=== PATIENT | male | born 1935 | race Caucasian/White ===

== ENCOUNTER 2020-02-05 12:14 | Inpatient (IN) | payer MEDICARE ==
[~2020-02-05] VITALS: Ht 182.9 cm; Wt 69.2 kg
[2020-02-05] MEDS ORDERED: FILTER 0.22 MICRON ONE (13:00)
[2020-02-05] MEDS: AMIODARONE 450 MG in DEXTROSE 5% 241 ML IV SCH (13:30)
[2020-02-05] MEDS ORDERED: PLEASE ENTER HEIGHT AND WEIGHT MC SCH (13:30)
[2020-02-05] MEDS ORDERED: PLEASE ENTER ALLERGIES MC SCH (13:30)
[2020-02-05] MEDS ORDERED: ONDANSETRON 2MG/ML, 2ML IVPush PRN (14:00)
[2020-02-05] MEDS ORDERED: AMIODARONE 450 MG in DEXTROSE 5% 241 ML IV PRN (14:00)
[2020-02-05] MEDS ORDERED: ACETAMINOPHEN 325 MG TABLET PO PRN (14:00)
[2020-02-05] MEDS ORDERED: DILTIAZEM 5 MG/ML, 5ML IVPush PRN (14:00)
[2020-02-05 14:20] VITALS: BP 111/70
[2020-02-05] MEDS ORDERED: FILTER 0.22 MICRON IV PRN (14:30)
[2020-02-05 14:31] LABS: MEAN CORPUSCULAR HEMOGLOBIN 29.9 pg (27.5-34.5); MEAN CORPUSCULAR HGB CONC 32.3 g/dL (33.2-36.2); MEAN CORPUSCULAR VOLUME 92.6 fL (81-97); MEAN PLATELET VOLUME 8.6 fL (7.4-10.4); PLATELET COUNT 462 x10^3/uL (130-400); RED BLOOD COUNT 4.41 x10^6/uL (4.38-5.82); RED CELL DISTRIBUTION WIDTH 18.2 % (9.4-14.8)
[2020-02-05 14:35] LABS: INTERNATIONAL NORMALIZED RATIO 1.11 (0.93-1.1); PROTHROMBIN TIME 11.8 Seconds (9.6-11.5)
[2020-02-05 14:38] LABS: ANION GAP 8 mmol/L (5-15); CALCIUM 8.7 mg/dL (8.5-10.1); CHLORIDE 114 mmol/L (98-107); CREATININE 1.54 mg/dL (0.7-1.3)
[2020-02-05 14:43] LABS: FREE T4 (FREE THYROXINE) 1.17 ng/dL (0.76-1.46); TROPONIN I 0.083 ng/mL (0.000-0.045)
[2020-02-05 15:22] LABS: HCT (SEDRATE) 40.9 % (39.2-51.8)
[2020-02-05 15:37] LABS: MD YES
[2020-02-05 15:40] LABS: ANISOCYTOSIS 1+; BAND#(MANUAL) 0.11 x10^3/uL; BANDS%(MANUAL) 1 % (0-7); EOS#(MANUAL) 0.56 x10^3/uL (0.0-0.4); EOS% (MANUAL) 5 % (1-7); LYMPH#(MANUAL) 1.78 x10^3/uL (1-3.4); LYMPHS% (MANUAL) 16 % (22-44); MONOS#(MANUAL) 0.56 x10^3/uL (0.3-2.7); MONOS% (MANUAL) 5 % (2-9); SEGS% (MANUAL) 73 % (42-75)
[2020-02-05 15:41] LABS: POLYCHROMASIA 1+
[2020-02-05 15:43] LABS: <PLATELET ESTIMATE> INCREASED; <PLT MORPHOLOGY> NORMAL PLT MORPH; ECHINOCYTES 1+
[2020-02-05] MEDS: CEFTRIAXONE PMX 1GM/50ML 50 ML IV SCH (16:13)
[2020-02-05] MEDS: SODIUM CHLORIDE 0.9% 1,000 ML IV SCH (16:13)
[2020-02-05] MEDS: METOPROLOL TARTRATE 25 MG TAB PO SCH ×2 (16:18→20:00)
[2020-02-05] MEDS: DOXYCYCLINE 100MG TABLET PO SCH (21:27)
[2020-02-05] MEDS: SODIUM CHLORIDE FLUSH 10ML SYR IVF SCH (21:31)
[2020-02-05 22:19] LABS: TROPONIN I 0.069 ng/mL (0.000-0.045)
[2020-02-05 22:59] LABS: ANION GAP 10 mmol/L (5-15); CALCIUM 8.3 mg/dL (8.5-10.1); CHLORIDE 114 mmol/L (98-107); CREATININE 1.43 mg/dL (0.7-1.3)
[2020-02-06 00:52] LABS: MICROSCOPIC INDICATED
[2020-02-06 00:59] LABS: CHLORIDE,URINE RANDOM 66 mmol/L; POTASSIUM,URINE RANDOM 32 mmol/L; SODIUM,URINE RANDOM 76 mmol/L
[2020-02-06] MEDS ORDERED: POTASSIUM CHLORIDE 20 MEQ TAB.ER.PRT PO ONE ×2 (02:00→06:30)
[2020-02-06] MEDS: METOPROLOL TARTRATE 25 MG TAB PO SCH ×4 (02:00→21:20)
[2020-02-06] MEDS: AMIODARONE 450 MG in DEXTROSE 5% 241 ML IV SCH ×3 (02:40→19:37)
[2020-02-06 04:00] VITALS: BP 122/82
[2020-02-06 05:04] LABS: ANION GAP 11 mmol/L (5-15); CALCIUM 8.1 mg/dL (8.5-10.1); CHLORIDE 114 mmol/L (98-107); CREATININE 1.34 mg/dL (0.7-1.3)
[2020-02-06 05:07] LABS: CHOL/HDL RATIO 5.5; CHOLESTEROL, TOTAL 216 mg/dL (140-239); HDL CHOL % 18 % (26-37); HDL CHOLESTEROL (DIRECT) 39 mg/dL (40-60); LDL CHOLESTEROL,CALCULATED 148 mg/dL (54-169); LDL/HDL RATIO 3.8 (0.5-3.0); TRIGLYCERIDES 147 mg/dL (50-200); VLDL CHOLESTEROL 29 mg/dL (0-25)
[2020-02-06] MEDS: LEVOTHYROXINE 25 MCG TABLET PO SCH (06:45)
[2020-02-06] MEDS: DOXYCYCLINE 100MG TABLET PO SCH ×2 (08:56→21:20)
[2020-02-06] MEDS: SENNA/DOCUSATE TABLET PO SCH (08:59)
[2020-02-06] MEDS: SODIUM CHLORIDE FLUSH 10ML SYR IVF SCH ×2 (08:59→21:21)
[2020-02-06] MEDS: PANTOPRAZOLE 40MG TABLET PO SCH (11:07)
[2020-02-06] MEDS: SODIUM CHLORIDE 0.9% 1,000 ML IV SCH (11:07)
[2020-02-06] MEDS: CEFTRIAXONE PMX 1GM/50ML 50 ML IV SCH (15:20)
[2020-02-07] MEDS: METOPROLOL TARTRATE 25 MG TAB PO SCH ×3 (01:03→20:32)
[2020-02-07 04:22] LABS: MEAN CORPUSCULAR HEMOGLOBIN 30.1 pg (27.5-34.5); MEAN CORPUSCULAR HGB CONC 32.2 g/dL (33.2-36.2); MEAN CORPUSCULAR VOLUME 93.5 fL (81-97); MEAN PLATELET VOLUME 8.4 fL (7.4-10.4); PLATELET COUNT 470 x10^3/uL (130-400); RED BLOOD COUNT 4.16 x10^6/uL (4.38-5.82)
[2020-02-07 04:30] LABS: ANION GAP 7 mmol/L (5-15); CALCIUM 8.3 mg/dL (8.5-10.1); CHLORIDE 112 mmol/L (98-107); CREATININE 1.44 mg/dL (0.7-1.3)
[2020-02-07 04:45] LABS: BASOPHILS % (AUTO) 0 % (0-1); EOSINOPHILS # (AUTO) 0.37 x10^3/uL (0-0.4); EOSINOPHILS % (AUTO) 2 % (1-7); LYMPHOCYTES % (AUTO) 12 % (22-44); MD SCAN; MONOCYTES % (AUTO) 3 % (2-9); NEUTROPHILS # (AUTO) 12.96 x10^3/uL (1.8-6.8); NEUTROPHILS % (AUTO) 84 % (42-75)
[2020-02-07] MEDS: PANTOPRAZOLE 40MG TABLET PO SCH (06:06)
[2020-02-07] MEDS: LEVOTHYROXINE 25 MCG TABLET PO SCH (06:06)
[2020-02-07] MEDS: AMIODARONE 450 MG in DEXTROSE 5% 241 ML IV SCH ×2 (07:29→07:31)
[2020-02-07] MEDS: SODIUM CHLORIDE 0.9% 1,000 ML IV SCH (07:31)
[2020-02-07] MEDS: DOXYCYCLINE 100MG TABLET PO SCH ×2 (08:17→20:31)
[2020-02-07] MEDS: SENNA/DOCUSATE TABLET PO SCH (08:19)
[2020-02-07] MEDS ORDERED: LIDOCAINE 1%, 10ML ONE (08:22)
[2020-02-07] MEDS ORDERED: PHARMACOKINETIC MONITORING MC PRN (08:30)
[2020-02-07] MEDS ORDERED: VANCOMYCIN PER PHARMACY MC PRN (08:30)
[2020-02-07] MEDS ORDERED: VANCOMYCIN 1,400 MG in SODIUM CHLORIDE 0.9% 250 ML IV SCH (08:30)
[2020-02-07] MEDS: SODIUM CHLORIDE FLUSH 10ML SYR IVF SCH ×2 (09:00→20:32)
[2020-02-07] MEDS: AMIODARONE 200 MG TABLET PO SCH ×2 (12:53→20:31)
[2020-02-07] MEDS: ASPIRIN 81 MG TABLET EC PO SCH (12:54)
[2020-02-07] MEDS ORDERED: DIPHENHYDRAMINE 50 MG/ML, 1ML IVPush ONE (13:30)
[2020-02-07] MEDS: CEFTRIAXONE PMX 1GM/50ML 50 ML IV SCH (15:06)
[2020-02-07 18:41] VITALS: BP 120/71
[2020-02-08 01:17] VITALS: BP 116/75
[2020-02-08] MEDS: LEVOTHYROXINE 25 MCG TABLET PO SCH (05:58)
[2020-02-08] MEDS: PANTOPRAZOLE 40MG TABLET PO SCH (05:58)
[2020-02-08] MEDS: ASPIRIN 81 MG TABLET EC PO SCH (05:58)
[2020-02-08 06:17] LABS: ANION GAP 8 mmol/L (5-15); CALCIUM 8.1 mg/dL (8.5-10.1); CHLORIDE 115 mmol/L (98-107); CREATININE 1.26 mg/dL (0.7-1.3)
[2020-02-08 06:19] LABS: VANCOMYCIN,RANDOM 10.4 mcg/mL
[2020-02-08 07:27] VITALS: BP 92/61
[2020-02-08] MEDS: SODIUM CHLORIDE 0.9% 1,000 ML IV SCH ×2 (08:29→11:00)
[2020-02-08] MEDS: AMIODARONE 200 MG TABLET PO SCH ×2 (08:50→20:23)
[2020-02-08] MEDS: METOPROLOL TARTRATE 25 MG TAB PO SCH ×2 (08:51→20:24)
[2020-02-08] MEDS: SENNA/DOCUSATE TABLET PO SCH (08:51)
[2020-02-08] MEDS: DOXYCYCLINE 100MG TABLET PO SCH ×2 (08:51→20:24)
[2020-02-08] MEDS: SODIUM CHLORIDE FLUSH 10ML SYR IVF SCH ×2 (08:53→20:23)
[2020-02-08] MEDS ORDERED: VANCOMYCIN 1,400 MG in SODIUM CHLORIDE 0.9% 250 ML IV ONE (10:00)
[2020-02-08 10:24] LABS: MEAN CORPUSCULAR HEMOGLOBIN 30.6 pg (27.5-34.5); MEAN CORPUSCULAR HGB CONC 32.4 g/dL (33.2-36.2); MEAN CORPUSCULAR VOLUME 94.2 fL (81-97); MEAN PLATELET VOLUME 8.8 fL (7.4-10.4); PLATELET COUNT 429 x10^3/uL (130-400); RED BLOOD COUNT 3.69 x10^6/uL (4.38-5.82); RED CELL DISTRIBUTION WIDTH 19.1 % (9.4-14.8)
[2020-02-08 10:57] LABS: BASOPHILS # (AUTO) 0.11 x10^3/uL (0-0.1); BASOPHILS % (AUTO) 1 % (0-1); EOSINOPHILS # (AUTO) 0.24 x10^3/uL (0-0.4); EOSINOPHILS % (AUTO) 2 % (1-7); LYMPHOCYTES # (AUTO) 1.59 x10^3/uL (1-3.4); LYMPHOCYTES % (AUTO) 13 % (22-44); MD SCAN; MONOCYTES # (AUTO) 0.56 x10^3/uL (0.2-0.8); MONOCYTES % (AUTO) 5 % (2-9); NEUTROPHILS # (AUTO) 10.02 x10^3/uL (1.8-6.8); NEUTROPHILS % (AUTO) 80 % (42-75)
[2020-02-08] MEDS ORDERED: MIDAZOLAM 1 MG/ML, 5ML ONE (12:32)
[2020-02-08] MEDS ORDERED: FENTANYL PF 100 MCG/2ML ONE (12:33)
[2020-02-08] MEDS ORDERED: HEPARIN 1,000 UNITS/ML, 10ML ONE (12:33)
[2020-02-08] MEDS ORDERED: BIVALIRUDIN 250 MG ONE (12:33)
[2020-02-08] MEDS ORDERED: LIDOCAINE-MPF 1%, 5ML ONE (12:33)
[2020-02-08] MEDS ORDERED: VERAPAMIL 2.5 MG/ML, 2ML ONE (12:45)
[2020-02-08] MEDS ORDERED: LIDOCAINE 1%, 20ML ONE (12:56)
[2020-02-08] MEDS ORDERED: CLOPIDOGREL 300 MG TABLET ONE ×2 (13:29→13:36)
[2020-02-08] MEDS ORDERED: BIVALIRUDIN 250 MG in SODIUM CHLORIDE 0.9% 50 ML IV SCH (13:35)
[2020-02-08] MEDS: CEFTRIAXONE PMX 1GM/50ML 50 ML IV SCH (14:28)
[2020-02-08] MEDS: AMPICILLIN/SULBACTAM 1,500 MG in SODIUM CHLORIDE 0.9% 50 ML IV SCH ×2 (16:49→22:53)
[2020-02-08 20:14] VITALS: BP 115/70
[2020-02-09 00:34] VITALS: BP 110/84
[2020-02-09] MEDS: SODIUM CHLORIDE 0.9% 1,000 ML IV SCH ×2 (00:38→13:44)
[2020-02-09] MEDS: AMPICILLIN/SULBACTAM 1,500 MG in SODIUM CHLORIDE 0.9% 50 ML IV SCH (04:22)
[2020-02-09] MEDS: LEVOTHYROXINE 25 MCG TABLET PO SCH (05:30)
[2020-02-09] MEDS: PANTOPRAZOLE 40MG TABLET PO SCH (05:30)
[2020-02-09] MEDS: ASPIRIN 81 MG TABLET EC PO SCH (05:30)
[2020-02-09 06:01] LABS: BASOPHILS # (AUTO) 0.02 x10^3/uL (0-0.1); BASOPHILS % (AUTO) 0 % (0-1); EOSINOPHILS # (AUTO) 0.26 x10^3/uL (0-0.4); EOSINOPHILS % (AUTO) 3 % (1-7); LYMPHOCYTES # (AUTO) 1.66 x10^3/uL (1-3.4); LYMPHOCYTES % (AUTO) 17 % (22-44); MD NO; MEAN CORPUSCULAR HEMOGLOBIN 29.9 pg (27.5-34.5); MEAN CORPUSCULAR HGB CONC 32.2 g/dL (33.2-36.2); MEAN CORPUSCULAR VOLUME 92.9 fL (81-97); MEAN PLATELET VOLUME 8.6 fL (7.4-10.4); MONOCYTES % (AUTO) 5 % (2-9); NEUTROPHILS # (AUTO) 7.23 x10^3/uL (1.8-6.8); NEUTROPHILS % (AUTO) 75 % (42-75); PLATELET COUNT 390 x10^3/uL (130-400); RED BLOOD COUNT 3.75 x10^6/uL (4.38-5.82); RED CELL DISTRIBUTION WIDTH 18.8 % (9.4-14.8)
[2020-02-09 06:08] LABS: ALBUMIN 1.9 g/dL (3.4-5.0); ANION GAP 8 mmol/L (5-15); CALCIUM 7.8 mg/dL (8.5-10.1); CHLORIDE 116 mmol/L (98-107)
[2020-02-09 06:13] LABS: ALANINE AMINOTRANSFERASE 13 U/L (12-78); ALKALINE PHOSPHATASE 73 U/L (45-117); BILIRUBIN,TOTAL 0.8 mg/dL (0.2-1.0); CREATININE 1.15 mg/dL (0.7-1.3); TOTAL PROTEIN 5.6 g/dL (6.4-8.2)
[2020-02-09 07:00] VITALS: BP 131/74
[2020-02-09] MEDS: CLOPIDOGREL 75 MG TABLET PO SCH (07:59)
[2020-02-09] MEDS: METOPROLOL TARTRATE 25 MG TAB PO SCH ×2 (07:59→20:15)
[2020-02-09] MEDS: DOXYCYCLINE 100MG TABLET PO SCH ×2 (07:59→20:15)
[2020-02-09] MEDS: AMIODARONE 200 MG TABLET PO SCH ×2 (08:00→21:00)
[2020-02-09] MEDS: SODIUM CHLORIDE FLUSH 10ML SYR IVF SCH ×2 (08:01→20:16)
[2020-02-09] MEDS: SENNA/DOCUSATE TABLET PO SCH (08:01)
[2020-02-09] MEDS: AMOXICILLIN/CLAV 875-125MG TABLET PO SCH ×2 (11:05→20:15)
[2020-02-09 13:18] VITALS: BP 100/55
[2020-02-09] MEDS ORDERED: AMIODARONE 450 MG in DEXTROSE 5% 241 ML IV PRN (16:00)
[2020-02-09] MEDS ORDERED: AMIODARONE 150 MG in DEXTROSE 5% 100 ML IV ONE (16:00)
[2020-02-09] MEDS ORDERED: FILTER 0.22 MICRON IV PRN (16:30)
[2020-02-09] MEDS: AMIODARONE 450 MG in DEXTROSE 5% 241 ML IV SCH (16:50)
[2020-02-09 20:03] VITALS: BP 120/74
[2020-02-09] MEDS: ATORVASTATIN 40 MG TABLET PO SCH (20:15)
[2020-02-10] MEDS: AMIODARONE 450 MG in DEXTROSE 5% 241 ML IV SCH (01:21)
[2020-02-10 01:28] VITALS: BP 128/74
[2020-02-10] MEDS: ASPIRIN 81 MG TABLET EC PO SCH (05:28)
[2020-02-10] MEDS: PANTOPRAZOLE 40MG TABLET PO SCH (05:28)
[2020-02-10] MEDS: LEVOTHYROXINE 25 MCG TABLET PO SCH (05:28)
[2020-02-10 05:38] LABS: BASOPHILS # (AUTO) 0.03 x10^3/uL (0-0.1); BASOPHILS % (AUTO) 0 % (0-1); EOSINOPHILS % (AUTO) 3 % (1-7); LYMPHOCYTES # (AUTO) 1.83 x10^3/uL (1-3.4); LYMPHOCYTES % (AUTO) 17 % (22-44); MD NO; MEAN CORPUSCULAR HEMOGLOBIN 30.3 pg (27.5-34.5); MEAN CORPUSCULAR HGB CONC 32.3 g/dL (33.2-36.2); MEAN CORPUSCULAR VOLUME 93.8 fL (81-97); MEAN PLATELET VOLUME 8.6 fL (7.4-10.4); MONOCYTES # (AUTO) 0.65 x10^3/uL (0.2-0.8); MONOCYTES % (AUTO) 6 % (2-9); NEUTROPHILS # (AUTO) 8.15 x10^3/uL (1.8-6.8); NEUTROPHILS % (AUTO) 74 % (42-75); PLATELET COUNT 399 x10^3/uL (130-400); RED CELL DISTRIBUTION WIDTH 18.4 % (9.4-14.8)
[2020-02-10 05:57] LABS: ALBUMIN 1.9 g/dL (3.4-5.0); ANION GAP 10 mmol/L (5-15); CALCIUM 7.7 mg/dL (8.5-10.1); CHLORIDE 115 mmol/L (98-107)
[2020-02-10 06:01] LABS: ALANINE AMINOTRANSFERASE 15 U/L (12-78); ALKALINE PHOSPHATASE 70 U/L (45-117); BILIRUBIN,TOTAL 0.9 mg/dL (0.2-1.0); TOTAL PROTEIN 5.4 g/dL (6.4-8.2)
[2020-02-10 07:22] VITALS: BP 107/60
[2020-02-10] MEDS: METOPROLOL TARTRATE 25 MG TAB PO SCH ×2 (09:54→20:47)
[2020-02-10] MEDS: AMOXICILLIN/CLAV 875-125MG TABLET PO SCH ×2 (09:54→21:39)
[2020-02-10] MEDS: CLOPIDOGREL 75 MG TABLET PO SCH (09:54)
[2020-02-10] MEDS: AMIODARONE 200 MG TABLET PO SCH ×2 (09:54→20:47)
[2020-02-10] MEDS: DOXYCYCLINE 100MG TABLET PO SCH ×2 (09:54→20:46)
[2020-02-10] MEDS: SODIUM CHLORIDE FLUSH 10ML SYR IVF SCH ×2 (09:56→20:48)
[2020-02-10] MEDS: SENNA/DOCUSATE TABLET PO SCH (09:57)
[2020-02-10] MEDS ORDERED: QUETIAPINE 25MG TABLET PO PRN (11:00)
[2020-02-10] MEDS ORDERED: AVOID BENZODIAZEPINES MC PRN (11:00)
[2020-02-10] MEDS ORDERED: INSTRUCTION SEE COMMENTS XX PRN (11:00)
[2020-02-10 13:11] VITALS: BP 109/67
[2020-02-10 18:57] LABS: BASOPHILS # (AUTO) 0.06 x10^3/uL (0-0.1); BASOPHILS % (AUTO) 1 % (0-1); EOSINOPHILS % (AUTO) 2 % (1-7); LYMPHOCYTES # (AUTO) 1.61 x10^3/uL (1-3.4); LYMPHOCYTES % (AUTO) 16 % (22-44); MD NO; MEAN CORPUSCULAR HEMOGLOBIN 30.9 pg (27.5-34.5); MEAN CORPUSCULAR HGB CONC 33.1 g/dL (33.2-36.2); MEAN CORPUSCULAR VOLUME 93.5 fL (81-97); MONOCYTES # (AUTO) 0.54 x10^3/uL (0.2-0.8); MONOCYTES % (AUTO) 5 % (2-9); NEUTROPHILS # (AUTO) 7.77 x10^3/uL (1.8-6.8); NEUTROPHILS % (AUTO) 76 % (42-75); PLATELET COUNT 401 x10^3/uL (130-400); RED BLOOD COUNT 3.38 x10^6/uL (4.38-5.82); RED CELL DISTRIBUTION WIDTH 17.7 % (9.4-14.8)
[2020-02-10 19:37] VITALS: BP 111/67
[2020-02-10] MEDS: ATORVASTATIN 40 MG TABLET PO SCH (20:47)
[2020-02-10] MEDS: MELATONIN 3 MG TABLET PO SCH (20:47)
[2020-02-11] MEDS: ASPIRIN 81 MG TABLET EC PO SCH (06:03)
[2020-02-11] MEDS: LEVOTHYROXINE 25 MCG TABLET PO SCH (06:04)
[2020-02-11] MEDS: PANTOPRAZOLE 40MG TABLET PO SCH (06:04)
[2020-02-11 07:23] LABS: ALANINE AMINOTRANSFERASE 12 U/L (12-78); ALBUMIN 1.9 g/dL (3.4-5.0); ANION GAP 10 mmol/L (5-15); CHLORIDE 115 mmol/L (98-107); CREATININE 1.25 mg/dL (0.7-1.3)
[2020-02-11 07:25] LABS: ALKALINE PHOSPHATASE 71 U/L (45-117); BILIRUBIN,TOTAL 0.6 mg/dL (0.2-1.0); TOTAL PROTEIN 5.3 g/dL (6.4-8.2)
[2020-02-11 07:27] VITALS: BP 104/62
[2020-02-11 07:39] LABS: BASOPHILS # (AUTO) 0.03 x10^3/uL (0-0.1); BASOPHILS % (AUTO) 0 % (0-1); EOSINOPHILS % (AUTO) 3 % (1-7); LYMPHOCYTES # (AUTO) 1.78 x10^3/uL (1-3.4); LYMPHOCYTES % (AUTO) 18 % (22-44); MD SCAN; MEAN CORPUSCULAR HEMOGLOBIN 30.5 pg (27.5-34.5); MEAN CORPUSCULAR HGB CONC 32.5 g/dL (33.2-36.2); MEAN CORPUSCULAR VOLUME 93.7 fL (81-97); MEAN PLATELET VOLUME 8.1 fL (7.4-10.4); MONOCYTES # (AUTO) 0.56 x10^3/uL (0.2-0.8); MONOCYTES % (AUTO) 6 % (2-9); NEUTROPHILS # (AUTO) 7.49 x10^3/uL (1.8-6.8); NEUTROPHILS % (AUTO) 74 % (42-75); PLATELET COUNT 378 x10^3/uL (130-400); RED BLOOD COUNT 3.24 x10^6/uL (4.38-5.82)
[2020-02-11] MEDS: AMOXICILLIN/CLAV 875-125MG TABLET PO SCH ×2 (08:52→20:52)
[2020-02-11] MEDS: DOXYCYCLINE 100MG TABLET PO SCH ×2 (08:52→20:51)
[2020-02-11] MEDS: AMIODARONE 200 MG TABLET PO SCH ×2 (08:52→20:51)
[2020-02-11] MEDS: METOPROLOL TARTRATE 25 MG TAB PO SCH ×2 (08:52→20:51)
[2020-02-11] MEDS: CLOPIDOGREL 75 MG TABLET PO SCH (08:52)
[2020-02-11] MEDS: SODIUM CHLORIDE FLUSH 10ML SYR IVF SCH ×2 (08:52→20:52)
[2020-02-11] MEDS: SENNA/DOCUSATE TABLET PO SCH (08:53)
[2020-02-11 13:20] VITALS: BP 97/63
[2020-02-11 20:18] VITALS: BP 108/52
[2020-02-11] MEDS: ATORVASTATIN 40 MG TABLET PO SCH (20:51)
[2020-02-11] MEDS: MELATONIN 3 MG TABLET PO SCH (20:51)
[2020-02-12 01:48] VITALS: BP 110/64
[2020-02-12] MEDS: PANTOPRAZOLE 40MG TABLET PO SCH (05:52)
[2020-02-12] MEDS: LEVOTHYROXINE 25 MCG TABLET PO SCH (05:52)
[2020-02-12] MEDS: ASPIRIN 81 MG TABLET EC PO SCH (05:52)
[2020-02-12 07:05] VITALS: BP 118/69
[2020-02-12 07:24] LABS: ALANINE AMINOTRANSFERASE 14 U/L (12-78); ALBUMIN 1.9 g/dL (3.4-5.0); ANION GAP 7 mmol/L (5-15); CALCIUM 7.8 mg/dL (8.5-10.1); CHLORIDE 113 mmol/L (98-107); CREATININE 1.25 mg/dL (0.7-1.3)
[2020-02-12 07:26] LABS: ALKALINE PHOSPHATASE 75 U/L (45-117); BASOPHILS # (AUTO) 0.06 x10^3/uL (0-0.1); BASOPHILS % (AUTO) 1 % (0-1); BILIRUBIN,TOTAL 0.5 mg/dL (0.2-1.0); EOSINOPHILS # (AUTO) 0.13 x10^3/uL (0-0.4); EOSINOPHILS % (AUTO) 2 % (1-7); LYMPHOCYTES # (AUTO) 1.85 x10^3/uL (1-3.4); LYMPHOCYTES % (AUTO) 24 % (22-44); MD NO; MEAN CORPUSCULAR HEMOGLOBIN 30.4 pg (27.5-34.5); MEAN CORPUSCULAR HGB CONC 32.4 g/dL (33.2-36.2); MEAN CORPUSCULAR VOLUME 93.9 fL (81-97); MEAN PLATELET VOLUME 8.1 fL (7.4-10.4); MONOCYTES # (AUTO) 0.41 x10^3/uL (0.2-0.8); MONOCYTES % (AUTO) 5 % (2-9); NEUTROPHILS # (AUTO) 5.33 x10^3/uL (1.8-6.8); NEUTROPHILS % (AUTO) 69 % (42-75); PLATELET COUNT 378 x10^3/uL (130-400); RED BLOOD COUNT 3.35 x10^6/uL (4.38-5.82); RED CELL DISTRIBUTION WIDTH 17.8 % (9.4-14.8); TOTAL PROTEIN 5.5 g/dL (6.4-8.2)
[2020-02-12] MEDS: SENNA/DOCUSATE TABLET PO SCH (09:00)
[2020-02-12] MEDS: CLOPIDOGREL 75 MG TABLET PO SCH (09:36)
[2020-02-12] MEDS: AMOXICILLIN/CLAV 875-125MG TABLET PO SCH ×2 (09:36→20:55)
[2020-02-12] MEDS: METOPROLOL TARTRATE 25 MG TAB PO SCH ×2 (09:36→20:55)
[2020-02-12] MEDS: AMIODARONE 200 MG TABLET PO SCH ×2 (09:36→20:54)
[2020-02-12] MEDS: DOXYCYCLINE 100MG TABLET PO SCH ×2 (09:36→20:55)
[2020-02-12] MEDS: SODIUM CHLORIDE FLUSH 10ML SYR IVF SCH ×2 (09:37→20:54)
[2020-02-12] MEDS ORDERED: QUETIAPINE 25MG TABLET PO PRN (10:30)
[2020-02-12] MEDS ORDERED: PHARMACY INSTRUCTION MC PRN (10:30)
[2020-02-12] MEDS ORDERED: INSTRUCTION SEE COMMENTS XX PRN (10:30)
[2020-02-12] MEDS ORDERED: MEGESTROL ORAL.SUSP 40 MG/ML PO SCH (11:00)
[2020-02-12] MEDS: MEGESTROL ORAL.SUSP 40 MG/ML PO SCH ×3 (11:08→20:56)
[2020-02-12 12:44] VITALS: BP 95/55
[2020-02-12 20:00] VITALS: BP 108/57
[2020-02-12] MEDS: ATORVASTATIN 40 MG TABLET PO SCH (20:55)
[2020-02-12] MEDS: MELATONIN 3 MG TABLET PO SCH ×2 (20:55→20:56)
[2020-02-13] MEDS: PANTOPRAZOLE 40MG TABLET PO SCH (05:29)
[2020-02-13] MEDS: ASPIRIN 81 MG TABLET EC PO SCH (05:29)
[2020-02-13] MEDS: MEGESTROL ORAL.SUSP 40 MG/ML PO SCH ×4 (05:29→20:35)
[2020-02-13] MEDS: LEVOTHYROXINE 25 MCG TABLET PO SCH (05:29)
[2020-02-13 05:52] LABS: CALCIUM 7.9 mg/dL (8.5-10.1); CHLORIDE 114 mmol/L (98-107)
[2020-02-13 05:56] LABS: ALANINE AMINOTRANSFERASE 16 U/L (12-78); ALBUMIN 1.8 g/dL (3.4-5.0); ALKALINE PHOSPHATASE 74 U/L (45-117); ANION GAP 10 mmol/L (5-15); BILIRUBIN,TOTAL 0.5 mg/dL (0.2-1.0); CREATININE 1.16 mg/dL (0.7-1.3); TOTAL PROTEIN 5.3 g/dL (6.4-8.2)
[2020-02-13 06:05] LABS: MEAN CORPUSCULAR HEMOGLOBIN 30.9 pg (27.5-34.5); MEAN CORPUSCULAR HGB CONC 33.4 g/dL (33.2-36.2); MEAN CORPUSCULAR VOLUME 92.3 fL (81-97); MEAN PLATELET VOLUME 8.6 fL (7.4-10.4); PLATELET COUNT 354 x10^3/uL (130-400); RED BLOOD COUNT 3.09 x10^6/uL (4.38-5.82); RED CELL DISTRIBUTION WIDTH 17.9 % (9.4-14.8)
[2020-02-13 06:27] LABS: BASOPHILS # (AUTO) 0.03 x10^3/uL (0-0.1); BASOPHILS % (AUTO) 0 % (0-1); EOSINOPHILS % (AUTO) 2 % (1-7); LYMPHOCYTES # (AUTO) 2.19 x10^3/uL (1-3.4); LYMPHOCYTES % (AUTO) 25 % (22-44); MD SCAN; MONOCYTES # (AUTO) 0.45 x10^3/uL (0.2-0.8); MONOCYTES % (AUTO) 5 % (2-9); NEUTROPHILS # (AUTO) 5.93 x10^3/uL (1.8-6.8); NEUTROPHILS % (AUTO) 67 % (42-75)
[2020-02-13 06:49] VITALS: BP 100/60
[2020-02-13] MEDS: SENNA/DOCUSATE TABLET PO SCH (09:52)
[2020-02-13] MEDS: AMOXICILLIN/CLAV 875-125MG TABLET PO SCH ×2 (09:52→20:36)
[2020-02-13] MEDS: CLOPIDOGREL 75 MG TABLET PO SCH (09:52)
[2020-02-13] MEDS: SODIUM CHLORIDE FLUSH 10ML SYR IVF SCH ×2 (09:53→20:36)
[2020-02-13] MEDS: METOPROLOL TARTRATE 25 MG TAB PO SCH ×2 (09:53→20:36)
[2020-02-13] MEDS: AMIODARONE 200 MG TABLET PO SCH ×2 (09:53→20:36)
[2020-02-13 12:43] VITALS: BP 104/59
[2020-02-13 20:29] VITALS: BP 101/64
[2020-02-13] MEDS: ATORVASTATIN 40 MG TABLET PO SCH (20:36)
[2020-02-13] MEDS: MELATONIN 3 MG TABLET PO SCH ×2 (20:36→20:37)
[2020-02-14] MEDS: MEGESTROL ORAL.SUSP 40 MG/ML PO SCH ×2 (06:18→10:08)
[2020-02-14] MEDS: PANTOPRAZOLE 40MG TABLET PO SCH (06:18)
[2020-02-14] MEDS: ASPIRIN 81 MG TABLET EC PO SCH (06:18)
[2020-02-14] MEDS: LEVOTHYROXINE 25 MCG TABLET PO SCH (06:18)
[2020-02-14 06:41] VITALS: BP 108/48
[2020-02-14 06:57] LABS: BASOPHILS # (AUTO) 0.07 x10^3/uL (0-0.1); BASOPHILS % (AUTO) 1 % (0-1); EOSINOPHILS % (AUTO) 1 % (1-7); LYMPHOCYTES # (AUTO) 1.93 x10^3/uL (1-3.4); LYMPHOCYTES % (AUTO) 27 % (22-44); MD NO; MEAN CORPUSCULAR HEMOGLOBIN 30.2 pg (27.5-34.5); MEAN CORPUSCULAR HGB CONC 32.4 g/dL (33.2-36.2); MEAN CORPUSCULAR VOLUME 93.2 fL (81-97); MEAN PLATELET VOLUME 7.8 fL (7.4-10.4); MONOCYTES # (AUTO) 0.34 x10^3/uL (0.2-0.8); MONOCYTES % (AUTO) 5 % (2-9); NEUTROPHILS % (AUTO) 66 % (42-75); PLATELET COUNT 368 x10^3/uL (130-400); RED BLOOD COUNT 3.12 x10^6/uL (4.38-5.82); RED CELL DISTRIBUTION WIDTH 17.1 % (9.4-14.8)
[2020-02-14 07:09] LABS: ALANINE AMINOTRANSFERASE 14 U/L (12-78); ALBUMIN 1.8 g/dL (3.4-5.0); ANION GAP 12 mmol/L (5-15); CALCIUM 7.9 mg/dL (8.5-10.1); CHLORIDE 113 mmol/L (98-107); CREATININE 1.12 mg/dL (0.7-1.3)
[2020-02-14 07:11] LABS: ALKALINE PHOSPHATASE 76 U/L (45-117); BILIRUBIN,TOTAL 0.5 mg/dL (0.2-1.0); TOTAL PROTEIN 5.1 g/dL (6.4-8.2)
[2020-02-14] MEDS: SENNA/DOCUSATE TABLET PO SCH (09:00)
[2020-02-14] MEDS: METOPROLOL TARTRATE 25 MG TAB PO SCH (10:08)
[2020-02-14] MEDS: AMOXICILLIN/CLAV 875-125MG TABLET PO SCH (10:08)
[2020-02-14] MEDS: AMIODARONE 200 MG TABLET PO SCH (10:08)
[2020-02-14] MEDS: CLOPIDOGREL 75 MG TABLET PO SCH (10:08)
[2020-02-14] MEDS: SODIUM CHLORIDE FLUSH 10ML SYR IVF SCH (10:09)
[2020-02-14] MEDS ORDERED: ACET325T26 PO (11:20)
[2020-02-14] MEDS ORDERED: PANT40TA5 PO (11:20)
[2020-02-14] MEDS ORDERED: METO25TA35 PO (11:20)
[2020-02-14] MEDS ORDERED: AMIO200T42 PO (11:20)
[2020-02-14] MEDS ORDERED: CLOP75TA PO (11:20)
[2020-02-14] MEDS ORDERED: MELA3TAB31 PO (11:20)
[2020-02-14] MEDS ORDERED: LEVO25TA2 PO (11:20)
[2020-02-14] MEDS ORDERED: MEGE400O6 PO (11:20)
[2020-02-14] MEDS ORDERED: ATOR40TA78 PO (11:20)
[2020-02-14] MEDS ORDERED: ASPI81TA45 PO (11:20)
[2020-02-14 12:13] VITALS: BP 99/57
== END 2020-02-14 13:47 | DRG 246 ==
LOC: CCU 12:58 → EDBD 12:58 → 5SO 02-07 18:28
PROVIDERS: ADMIT Internal Medicine Cardiovascular Disease; ATTEND Internal Medicine
PROC: 0T9B70Z Drainage of Bladder with Drainage Device, Via Natural or Artificial Opening (ICD-10-PCS; 2020-02-06)
PROC: 0W9B30Z Drainage of Left Pleural Cavity with Drainage Device, Percutaneous Approach (ICD-10-PCS; 2020-02-07)
PROC: 027034Z Dilation of Coronary Artery, One Artery with Drug-eluting Intraluminal Device, Percutaneous Approach (ICD-10-PCS; principal; 2020-02-08)
PROC: 4A023N7 Measurement of Cardiac Sampling and Pressure, Left Heart, Percutaneous Approach (ICD-10-PCS; 2020-02-08)
PROC: B211YZZ Fluoroscopy of Multiple Coronary Arteries using Other Contrast (ICD-10-PCS; 2020-02-08)
PROC: B215YZZ Fluoroscopy of Left Heart using Other Contrast (ICD-10-PCS; 2020-02-08)
DX: I47.2 Ventricular tachycardia (principal); J15.6 Pneumonia due to other Gram-negative bacteria; J96.01 Acute respiratory failure with hypoxia; G93.41 Metabolic encephalopathy; N17.0 Acute kidney failure with tubular necrosis; D68.69 Other thrombophilia; E46 Unspecified protein-calorie malnutrition; E87.2 Acidosis; L03.113 Cellulitis of right upper limb; N13.30 Unspecified hydronephrosis; I82.612 Acute embolism and thrombosis of superficial veins of left upper extremity; I42.9 Cardiomyopathy, unspecified; I50.20 Unspecified systolic (congestive) heart failure; J91.8 Pleural effusion in other conditions classified elsewhere; R31.9 Hematuria, unspecified; I46.9 Cardiac arrest, cause unspecified; I25.10 Atherosclerotic heart disease of native coronary artery without angina pectoris; D64.9 Anemia, unspecified; E03.9 Hypothyroidism, unspecified; F03.90 Unspecified dementia, unspecified severity, without behavioral disturbance, psychotic disturbance, mood disturbance, and anxiety; I34.0 Nonrheumatic mitral (valve) insufficiency; I48.0 Paroxysmal atrial fibrillation; R62.7 Adult failure to thrive; Z60.2 Problems related to living alone; Z87.891 Personal history of nicotine dependence; Z91.14 Patient's other noncompliance with medication regimen; Z91.19 Patient's noncompliance with other medical treatment and regimen; Z98.52 Vasectomy status; Z82.49 Family history of ischemic heart disease and other diseases of the circulatory system; Z79.899 Other long term (current) drug therapy; Z68.20 Body mass index [BMI] 20.0-20.9, adult
CPT/HCPCS: 32555; 36415; 71045; 76770; 80048; 80053; 80061; 80202; 81001; 82436; 82533; 82550; 82570; 82607; 83615; 83690; 83735; 84100; 84133; 84157; 84300; 84439; 84443; 84484; 85014; 85018; 85025; 85610; 85651; 87040; 87070; 87081; 87086; 87205; 88112; 88305; 89051; 93005; 93306; 93458; 99156; 99157; C1760; C1769; C1894; C9600; G0378; J0583; J0696; J1644; J2250; J3010; J3370; J7060; C1725; C1874; C1887; J0282; J0295; J7030; J7050; Q9967

== ENCOUNTER 2020-02-23 14:44 | Inpatient (IN) | payer MEDICARE ==
[~2020-02-23] VITALS: Ht 182.9 cm; Wt 79.0 kg
[2020-02-23] VITALS (7 sets, daily range): BP systolic 124–145; BP diastolic 68–73
[~2020-02-23 14:44] MED LIST: ACET325T26 PO; AMIO200T42 PO; ASPI81TA45 PO; ATOR40TA78 PO; CLOP75TA PO; LEVO25TA2 PO; MEGE400O6 PO; MELA3TAB31 PO; METO25TA35 PO; PANT40TA5 PO
--- NOTE | 2020-02-23 15:29 | NUR ---
BIB EMS FROM [facility] FOR URINARY RETENTION. EAST REMOVED AT FACILITY. UNABLE TO VOID. BLADDER SCAN >1000 IN ED. PA AT BEDSIDE. RN TO INSERT EAST. PT DENIES DISCOMFORT OR PAIN. VSS
[2020-02-23] MEDS ORDERED: SODIUM CHLORIDE FLUSH 10ML SYR IVF ONE (16:30)
--- NOTE | 2020-02-23 16:30 | NUR ---
EAST INSERTED, DRAINING DARK RED BLOOD. IRRIGATED PER MD DIRECTIONS.
[2020-02-23 16:38] LABS: MICROSCOPIC INDICATED
[2020-02-23] MEDS ORDERED: CEFTRIAXONE PMX 1GM/50ML 50 ML IV ONE (17:00)
[2020-02-23 17:27] LABS: BASOPHILS # (AUTO) 0.02 x10^3/uL (0-0.1); BASOPHILS % (AUTO) 0 % (0-1); EOSINOPHILS # (AUTO) 0.01 x10^3/uL (0-0.4); EOSINOPHILS % (AUTO) 0 % (1-7); LYMPHOCYTES # (AUTO) 1.75 x10^3/uL (1-3.4); LYMPHOCYTES % (AUTO) 15 % (22-44); MD NO; MEAN CORPUSCULAR HEMOGLOBIN 30.2 pg (27.5-34.5); MEAN CORPUSCULAR HGB CONC 32.5 g/dL (33.2-36.2); MEAN PLATELET VOLUME 7.6 fL (7.4-10.4); MONOCYTES # (AUTO) 0.34 x10^3/uL (0.2-0.8); MONOCYTES % (AUTO) 3 % (2-9); NEUTROPHILS # (AUTO) 9.27 x10^3/uL (1.8-6.8); NEUTROPHILS % (AUTO) 81 % (42-75); PLATELET COUNT 389 x10^3/uL (130-400); RED BLOOD COUNT 2.55 x10^6/uL (4.38-5.82); RED CELL DISTRIBUTION WIDTH 18.2 % (9.4-14.8)
--- NOTE | 2020-02-23 17:29 | NUR ---
LABS DRAWN, IV ESTABLISHED, REQUESTING CBI, EAST DRAINAGE NOT CLEARING UP , STILL DARK RED BLOOD DRAINAGE. PT AWARE OF PLAN OF CARE.
[2020-02-23 17:35] LABS: ALBUMIN 2.1 g/dL (3.4-5.0); ANION GAP 6 mmol/L (5-15); CALCIUM 7.6 mg/dL (8.5-10.1); CHLORIDE 111 mmol/L (98-107); CREATININE 1.22 mg/dL (0.7-1.3)
[2020-02-23 17:52] LABS: INTERNATIONAL NORMALIZED RATIO 1.06 (0.93-1.1); PROTHROMBIN TIME 11.2 Seconds (9.6-11.5)
--- NOTE | 2020-02-23 17:55 | NUR ---
CBI IN PROCESS. WAITING FOR IMAGING, VSS. PT WATCHING TV.
[2020-02-23] MEDS ORDERED: OMNIPAQUE 350 MG/ML, 150 ML BOTTLE ONE (18:34)
--- NOTE | 2020-02-23 18:58 | NUR ---
REPORT RECEIVED FROM DIYA WOOTEN. PT RESTING ON [facility], UPDATED ON POC. MONITORING IN PLACE, CALL LIGHT WITHIN REACH. ALL SAFETY MEASURES IN PLACE.
--- NOTE | 2020-02-23 19:18 | NUR ---
TASK RN: HOSPITALIST AT BEDSIDE AND CONSENT OBTAINED FOR BLOOD TRANSFUSION
[2020-02-23] MEDS ORDERED: POLYETHYLENE GLYCOL 17 GM PACKET PO PRN (19:30)
[2020-02-23] MEDS ORDERED: BISACODYL 10 MG SUPP PR PRN (19:30)
[2020-02-23] MEDS ORDERED: ONDANSETRON ODT 4 MG PO PRN (19:30)
[2020-02-23] MEDS: AMIODARONE 200 MG TABLET PO SCH (21:28)
[2020-02-23] MEDS: ATORVASTATIN 40 MG TABLET PO SCH (21:28)
[2020-02-23] MEDS: MELATONIN 3 MG TABLET PO SCH (21:28)
[2020-02-23] MEDS: METOPROLOL TARTRATE 25 MG TAB PO SCH (21:29)
[2020-02-23] MEDS: SODIUM CHLORIDE FLUSH 10ML SYR IVF SCH (21:29)
[2020-02-23] MEDS: CEFTRIAXONE PMX 1GM/50ML 50 ML IV SCH (21:50)
[2020-02-24 00:03] VITALS: BP 125/57
[2020-02-24 05:15] LABS: ANION GAP 9 mmol/L (5-15); CALCIUM 8.1 mg/dL (8.5-10.1); CHLORIDE 110 mmol/L (98-107); CREATININE 1.23 mg/dL (0.7-1.3)
[2020-02-24] MEDS: PANTOPRAZOLE 40MG TABLET PO SCH (06:00)
[2020-02-24 06:01] LABS: BASOPHILS % (AUTO) 0 % (0-1); EOSINOPHILS % (AUTO) 0 % (1-7); LYMPHOCYTES % (AUTO) 16 % (22-44); MD MORPH REVIEW ONLY; MEAN CORPUSCULAR HEMOGLOBIN 30.6 pg (27.5-34.5); MEAN CORPUSCULAR HGB CONC 33.1 g/dL (33.2-36.2); MEAN CORPUSCULAR VOLUME 92.4 fL (81-97); MEAN PLATELET VOLUME 7.5 fL (7.4-10.4); MONOCYTES % (AUTO) 4 % (2-9); NEUTROPHILS % (AUTO) 79 % (42-75); PLATELET COUNT 338 x10^3/uL (130-400); RED BLOOD COUNT 3.05 x10^6/uL (4.38-5.82)
[2020-02-24 06:02] LABS: BASOPHILS # (AUTO) 0.04 x10^3/uL (0-0.1); LYMPHOCYTES # (AUTO) 1.71 x10^3/uL (1-3.4); MONOCYTES # (AUTO) 0.44 x10^3/uL (0.2-0.8); NEUTROPHILS # (AUTO) 8.38 x10^3/uL (1.8-6.8)
[2020-02-24 06:03] LABS: ANISOCYTOSIS 1+; OVALOCYTES 1+; POLYCHROMASIA 1+
[2020-02-24 06:04] LABS: ECHINOCYTES 2+
[2020-02-24 06:05] LABS: <PLATELET ESTIMATE> ADEQUATE; <PLT MORPHOLOGY> NORMAL PLT MORPH; SCHISTOCYTES 1+
[2020-02-24] MEDS: LEVOTHYROXINE 25 MCG TABLET PO SCH (06:05)
[2020-02-24 06:56] VITALS: BP 125/64
[2020-02-24] MEDS: SODIUM CHLORIDE FLUSH 10ML SYR IVF SCH ×2 (08:41→21:32)
[2020-02-24] MEDS: AMIODARONE 200 MG TABLET PO SCH ×2 (08:44→21:32)
[2020-02-24] MEDS: SENNA/DOCUSATE TABLET PO SCH (08:45)
[2020-02-24] MEDS: METOPROLOL TARTRATE 25 MG TAB PO SCH ×2 (08:45→21:33)
[2020-02-24 13:19] VITALS: BP 121/66
[2020-02-24 19:03] VITALS: BP 110/41
[2020-02-24 21:30] VITALS: BP 128/63
[2020-02-24] MEDS: ATORVASTATIN 40 MG TABLET PO SCH (21:32)
[2020-02-24] MEDS: CEFTRIAXONE PMX 1GM/50ML 50 ML IV SCH (21:33)
[2020-02-24] MEDS: MELATONIN 3 MG TABLET PO SCH (21:33)
[2020-02-25 00:03] VITALS: BP 124/53
[2020-02-25] MEDS: PANTOPRAZOLE 40MG TABLET PO SCH (05:41)
[2020-02-25 06:05] VITALS: BP 122/58
[2020-02-25] MEDS: LEVOTHYROXINE 25 MCG TABLET PO SCH (06:07)
[2020-02-25 07:14] VITALS: BP 110/53
[2020-02-25] MEDS: AMIODARONE 200 MG TABLET PO SCH ×2 (08:59→21:06)
[2020-02-25] MEDS: SENNA/DOCUSATE TABLET PO SCH (08:59)
[2020-02-25] MEDS: METOPROLOL TARTRATE 25 MG TAB PO SCH ×2 (08:59→21:05)
[2020-02-25] MEDS: FINASTERIDE 5 MG TABLET PO SCH (09:01)
[2020-02-25] MEDS: SODIUM CHLORIDE FLUSH 10ML SYR IVF SCH ×2 (09:01→21:00)
[2020-02-25 09:03] LABS: BASOPHILS # (AUTO) 0.03 x10^3/uL (0-0.1); BASOPHILS % (AUTO) 0 % (0-1); EOSINOPHILS # (AUTO) 0.09 x10^3/uL (0-0.4); EOSINOPHILS % (AUTO) 1 % (1-7); HEMOGRAM NOTE RECHECKED; LYMPHOCYTES # (AUTO) 1.47 x10^3/uL (1-3.4); LYMPHOCYTES % (AUTO) 16 % (22-44); MD NO; MEAN CORPUSCULAR HEMOGLOBIN 30.4 pg (27.5-34.5); MEAN CORPUSCULAR HGB CONC 32.7 g/dL (33.2-36.2); MEAN CORPUSCULAR VOLUME 93.1 fL (81-97); MEAN PLATELET VOLUME 7.5 fL (7.4-10.4); MONOCYTES # (AUTO) 0.44 x10^3/uL (0.2-0.8); MONOCYTES % (AUTO) 5 % (2-9); NEUTROPHILS # (AUTO) 7.21 x10^3/uL (1.8-6.8); NEUTROPHILS % (AUTO) 78 % (42-75); PLATELET COUNT 306 x10^3/uL (130-400); RED CELL DISTRIBUTION WIDTH 17.4 % (9.4-14.8)
[2020-02-25 09:06] LABS: ALANINE AMINOTRANSFERASE 31 U/L (12-78); ALBUMIN 2.2 g/dL (3.4-5.0); ANION GAP 6 mmol/L (5-15); CALCIUM 7.6 mg/dL (8.5-10.1); CHLORIDE 110 mmol/L (98-107); CREATININE 1.23 mg/dL (0.7-1.3)
[2020-02-25 09:09] LABS: ALKALINE PHOSPHATASE 74 U/L (45-117); BILIRUBIN,TOTAL 0.4 mg/dL (0.2-1.0); TOTAL PROTEIN 5.1 g/dL (6.4-8.2)
[2020-02-25 12:42] VITALS: BP 103/47
[2020-02-25 19:50] VITALS: BP 105/55
[2020-02-25] MEDS: METHOCARBAMOL 500 MG TABLET PO PRN (20:09)
[2020-02-25 20:32] LABS: BASOPHILS # (AUTO) 0.05 x10^3/uL (0-0.1); BASOPHILS % (AUTO) 0 % (0-1); EOSINOPHILS # (AUTO) 0.38 x10^3/uL (0-0.4); EOSINOPHILS % (AUTO) 3 % (1-7); LYMPHOCYTES # (AUTO) 2.05 x10^3/uL (1-3.4); LYMPHOCYTES % (AUTO) 17 % (22-44); MD NO; MEAN CORPUSCULAR HEMOGLOBIN 30.8 pg (27.5-34.5); MEAN CORPUSCULAR VOLUME 93.1 fL (81-97); MEAN PLATELET VOLUME 7.9 fL (7.4-10.4); MONOCYTES # (AUTO) 0.59 x10^3/uL (0.2-0.8); MONOCYTES % (AUTO) 5 % (2-9); NEUTROPHILS # (AUTO) 9.28 x10^3/uL (1.8-6.8); NEUTROPHILS % (AUTO) 75 % (42-75); PLATELET COUNT 374 x10^3/uL (130-400); RED CELL DISTRIBUTION WIDTH 17.7 % (9.4-14.8)
[2020-02-25 21:04] VITALS: BP 112/58
[2020-02-25] MEDS: MELATONIN 3 MG TABLET PO SCH (21:05)
[2020-02-25] MEDS: ATORVASTATIN 40 MG TABLET PO SCH (21:06)
[2020-02-26] MEDS: CEFDINIR 300 MG CAPSULE PO SCH ×3 (01:06→21:08)
[2020-02-26 01:07] VITALS: BP 110/55
[2020-02-26] MEDS: ACETAMINOPHEN 325 MG TABLET PO PRN (02:29)
[2020-02-26] MEDS: METHOCARBAMOL 500 MG TABLET PO PRN (02:29)
[2020-02-26 06:01] LABS: BASOPHILS # (AUTO) 0.07 x10^3/uL (0-0.1); BASOPHILS % (AUTO) 1 % (0-1); EOSINOPHILS # (AUTO) 0.16 x10^3/uL (0-0.4); EOSINOPHILS % (AUTO) 2 % (1-7); LYMPHOCYTES # (AUTO) 2.06 x10^3/uL (1-3.4); LYMPHOCYTES % (AUTO) 21 % (22-44); MD NO; MEAN CORPUSCULAR HEMOGLOBIN 30.8 pg (27.5-34.5); MEAN CORPUSCULAR HGB CONC 32.7 g/dL (33.2-36.2); MEAN CORPUSCULAR VOLUME 94.3 fL (81-97); MEAN PLATELET VOLUME 7.4 fL (7.4-10.4); MONOCYTES # (AUTO) 0.58 x10^3/uL (0.2-0.8); MONOCYTES % (AUTO) 6 % (2-9); NEUTROPHILS # (AUTO) 7.11 x10^3/uL (1.8-6.8); NEUTROPHILS % (AUTO) 71 % (42-75); PLATELET COUNT 321 x10^3/uL (130-400); RED BLOOD COUNT 2.65 x10^6/uL (4.38-5.82); RED CELL DISTRIBUTION WIDTH 17.4 % (9.4-14.8)
[2020-02-26 06:04] VITALS: BP 115/58
[2020-02-26 06:05] LABS: ALBUMIN 2.2 g/dL (3.4-5.0); ANION GAP 6 mmol/L (5-15); CALCIUM 7.5 mg/dL (8.5-10.1); CHLORIDE 110 mmol/L (98-107)
[2020-02-26] MEDS: PANTOPRAZOLE 40MG TABLET PO SCH (06:07)
[2020-02-26] MEDS: LEVOTHYROXINE 25 MCG TABLET PO SCH (06:08)
[2020-02-26 06:09] LABS: ALANINE AMINOTRANSFERASE 41 U/L (12-78); ALKALINE PHOSPHATASE 80 U/L (45-117); BILIRUBIN,TOTAL 0.6 mg/dL (0.2-1.0); CREATININE 1.45 mg/dL (0.7-1.3); TOTAL PROTEIN 5.4 g/dL (6.4-8.2)
[2020-02-26 07:36] VITALS: BP 115/51
[2020-02-26] MEDS: METOPROLOL TARTRATE 25 MG TAB PO SCH ×2 (07:59→21:09)
[2020-02-26] MEDS: AMIODARONE 200 MG TABLET PO SCH ×2 (07:59→21:08)
[2020-02-26] MEDS: SODIUM CHLORIDE FLUSH 10ML SYR IVF SCH ×2 (07:59→21:10)
[2020-02-26] MEDS: FINASTERIDE 5 MG TABLET PO SCH (07:59)
[2020-02-26] MEDS: SENNA/DOCUSATE TABLET PO SCH (08:04)
[2020-02-26] MEDS ORDERED: CEFDINIR 300 MG CAPSULE PO SCH (09:00)
[2020-02-26] MEDS: CLOPIDOGREL 75 MG TABLET PO SCH (12:34)
[2020-02-26] MEDS: SODIUM CHLORIDE 0.9% 1,000 ML IV SCH (12:34)
[2020-02-26 14:10] VITALS: BP 101/58
[2020-02-26] MEDS ORDERED: MORPHINE SULFATE 4 MG/ML, 1ML IVPush ONE (15:30)
[2020-02-26] MEDS ORDERED: MORPHINE SULFATE 4 MG/ML, 1ML ONE (15:35)
[2020-02-26 20:14] VITALS: BP 114/61
[2020-02-26] MEDS: ATORVASTATIN 40 MG TABLET PO SCH (21:08)
[2020-02-26] MEDS: MELATONIN 3 MG TABLET PO SCH (21:08)
[2020-02-27 02:00] VITALS: BP 105/55
[2020-02-27] MEDS: SODIUM CHLORIDE 0.9% 1,000 ML IV SCH (02:17)
[2020-02-27 04:57] LABS: ANION GAP 6 mmol/L (5-15); CALCIUM 7.2 mg/dL (8.5-10.1); CHLORIDE 113 mmol/L (98-107)
[2020-02-27 05:24] LABS: ALANINE AMINOTRANSFERASE 44 U/L (12-78); ALKALINE PHOSPHATASE 70 U/L (45-117); BILIRUBIN,TOTAL 0.3 mg/dL (0.2-1.0); TOTAL PROTEIN 4.9 g/dL (6.4-8.2)
[2020-02-27] MEDS: LEVOTHYROXINE 25 MCG TABLET PO SCH (05:34)
[2020-02-27] MEDS: PANTOPRAZOLE 40MG TABLET PO SCH (05:34)
[2020-02-27 05:59] LABS: MEAN CORPUSCULAR HEMOGLOBIN 30.7 pg (27.5-34.5); MEAN CORPUSCULAR HGB CONC 32.7 g/dL (33.2-36.2); MEAN CORPUSCULAR VOLUME 93.9 fL (81-97); MEAN PLATELET VOLUME 7.3 fL (7.4-10.4); PLATELET COUNT 309 x10^3/uL (130-400); RED BLOOD COUNT 2.38 x10^6/uL (4.38-5.82); RED CELL DISTRIBUTION WIDTH 17.7 % (9.4-14.8)
[2020-02-27 06:22] LABS: BASOPHILS # (AUTO) 0.05 x10^3/uL (0-0.1); BASOPHILS % (AUTO) 1 % (0-1); EOSINOPHILS # (AUTO) 0.33 x10^3/uL (0-0.4); EOSINOPHILS % (AUTO) 4 % (1-7); LYMPHOCYTES % (AUTO) 20 % (22-44); MD SCAN; MONOCYTES % (AUTO) 6 % (2-9); NEUTROPHILS # (AUTO) 5.84 x10^3/uL (1.8-6.8); NEUTROPHILS % (AUTO) 69 % (42-75)
[2020-02-27 07:50] VITALS: BP 126/63
[2020-02-27] MEDS: CEFDINIR 300 MG CAPSULE PO SCH ×2 (09:45→20:53)
[2020-02-27] MEDS: METOPROLOL TARTRATE 25 MG TAB PO SCH ×2 (09:45→20:53)
[2020-02-27] MEDS: FINASTERIDE 5 MG TABLET PO SCH (09:45)
[2020-02-27] MEDS: CLOPIDOGREL 75 MG TABLET PO SCH (09:45)
[2020-02-27] MEDS: SENNA/DOCUSATE TABLET PO SCH (09:45)
[2020-02-27] MEDS: SODIUM CHLORIDE FLUSH 10ML SYR IVF SCH ×2 (09:46→20:53)
[2020-02-27] MEDS: AMIODARONE 200 MG TABLET PO SCH ×2 (09:46→20:53)
--- NOTE | 2020-02-27 12:35 | NUR ---
OT evaluation completed. Patient is not safe to return home following hospitalization. He will require inpatient therapies at [facility] Addendum: 02/27/20 at 1255 by Timi Fong OT Amended: Links added.
[2020-02-27 12:55] VITALS: BP 116/60
[2020-02-27] MEDS ORDERED: CYCLOBENZAPRINE 10 MG TABLET PO PRN (14:30)
[2020-02-27] MEDS: METHOCARBAMOL 500 MG TABLET PO PRN (15:44)
[2020-02-27] MEDS: ACETAMINOPHEN 325 MG TABLET PO PRN (15:44)
[2020-02-27 18:48] LABS: BASOPHILS # (AUTO) 0.14 x10^3/uL (0-0.1); BASOPHILS % (AUTO) 1 % (0-1); EOSINOPHILS # (AUTO) 0.31 x10^3/uL (0-0.4); EOSINOPHILS % (AUTO) 3 % (1-7); LYMPHOCYTES # (AUTO) 1.54 x10^3/uL (1-3.4); LYMPHOCYTES % (AUTO) 16 % (22-44); MD NO; MEAN CORPUSCULAR HEMOGLOBIN 30.2 pg (27.5-34.5); MEAN CORPUSCULAR HGB CONC 32.3 g/dL (33.2-36.2); MEAN CORPUSCULAR VOLUME 93.5 fL (81-97); MEAN PLATELET VOLUME 7.2 fL (7.4-10.4); MONOCYTES # (AUTO) 0.35 x10^3/uL (0.2-0.8); MONOCYTES % (AUTO) 4 % (2-9); NEUTROPHILS # (AUTO) 7.46 x10^3/uL (1.8-6.8); NEUTROPHILS % (AUTO) 76 % (42-75); PLATELET COUNT 360 x10^3/uL (130-400); RED BLOOD COUNT 2.61 x10^6/uL (4.38-5.82)
[2020-02-27 19:41] VITALS: BP 130/66
[2020-02-27] MEDS: ATORVASTATIN 40 MG TABLET PO SCH (20:53)
[2020-02-27] MEDS: MELATONIN 3 MG TABLET PO SCH (21:00)
[2020-02-27] MEDS: MIRTAZAPINE 30 MG TAB.RAPDIS PO SCH (22:04)
[2020-02-28 02:43] VITALS: BP 155/84
[2020-02-28 05:15] LABS: BASOPHILS # (AUTO) 0.04 x10^3/uL (0-0.1); BASOPHILS % (AUTO) 0 % (0-1); EOSINOPHILS # (AUTO) 0.33 x10^3/uL (0-0.4); EOSINOPHILS % (AUTO) 3 % (1-7); LYMPHOCYTES # (AUTO) 1.45 x10^3/uL (1-3.4); LYMPHOCYTES % (AUTO) 14 % (22-44); MD NO; MEAN CORPUSCULAR HEMOGLOBIN 30.9 pg (27.5-34.5); MEAN CORPUSCULAR HGB CONC 33.2 g/dL (33.2-36.2); MEAN PLATELET VOLUME 7.5 fL (7.4-10.4); MONOCYTES # (AUTO) 0.37 x10^3/uL (0.2-0.8); MONOCYTES % (AUTO) 4 % (2-9); NEUTROPHILS # (AUTO) 8.11 x10^3/uL (1.8-6.8); NEUTROPHILS % (AUTO) 79 % (42-75); PLATELET COUNT 381 x10^3/uL (130-400); RED BLOOD COUNT 2.81 x10^6/uL (4.38-5.82); RED CELL DISTRIBUTION WIDTH 17.8 % (9.4-14.8)
[2020-02-28 05:24] LABS: ALANINE AMINOTRANSFERASE 57 U/L (12-78); ALBUMIN 2.3 g/dL (3.4-5.0); ANION GAP 9 mmol/L (5-15); CALCIUM 7.8 mg/dL (8.5-10.1); CHLORIDE 110 mmol/L (98-107); CREATININE 1.11 mg/dL (0.7-1.3)
[2020-02-28 05:27] LABS: ALKALINE PHOSPHATASE 81 U/L (45-117); BILIRUBIN,TOTAL 0.4 mg/dL (0.2-1.0); TOTAL PROTEIN 5.7 g/dL (6.4-8.2)
[2020-02-28] MEDS: PANTOPRAZOLE 40MG TABLET PO SCH (05:37)
[2020-02-28] MEDS: LEVOTHYROXINE 25 MCG TABLET PO SCH (05:38)
[2020-02-28 07:08] VITALS: BP 118/50
[2020-02-28] MEDS ORDERED: ERGOCALCIFEROL 50,000 UNIT CAPSULE PO SCH (08:30)
[2020-02-28] MEDS: AMIODARONE 200 MG TABLET PO SCH ×2 (08:31→20:01)
[2020-02-28] MEDS: CEFDINIR 300 MG CAPSULE PO SCH ×2 (08:31→20:01)
[2020-02-28] MEDS: CLOPIDOGREL 75 MG TABLET PO SCH (08:31)
[2020-02-28] MEDS: ACETAMINOPHEN 325 MG TABLET PO PRN (08:31)
[2020-02-28] MEDS: SENNA/DOCUSATE TABLET PO SCH (08:32)
[2020-02-28] MEDS: METOPROLOL TARTRATE 25 MG TAB PO SCH ×2 (08:32→20:01)
[2020-02-28] MEDS: SODIUM CHLORIDE FLUSH 10ML SYR IVF SCH ×2 (08:32→20:02)
[2020-02-28] MEDS: FINASTERIDE 5 MG TABLET PO SCH (08:33)
[2020-02-28 13:30] VITALS: BP 128/64
[2020-02-28 19:41] VITALS: BP 132/69
[2020-02-28] MEDS: MELATONIN 3 MG TABLET PO SCH (20:01)
[2020-02-28] MEDS: ATORVASTATIN 40 MG TABLET PO SCH (20:01)
[2020-02-28] MEDS: MIRTAZAPINE 30 MG TAB.RAPDIS PO SCH (20:02)
[2020-02-29 01:14] VITALS: BP 144/80
[2020-02-29] MEDS: ACETAMINOPHEN 325 MG TABLET PO PRN (02:01)
[2020-02-29] MEDS: PANTOPRAZOLE 40MG TABLET PO SCH (06:06)
[2020-02-29] MEDS: LEVOTHYROXINE 25 MCG TABLET PO SCH (06:07)
[2020-02-29] MEDS: SENNA/DOCUSATE TABLET PO SCH (08:38)
[2020-02-29] MEDS: CLOPIDOGREL 75 MG TABLET PO SCH (08:38)
[2020-02-29] MEDS: CEFDINIR 300 MG CAPSULE PO SCH (08:38)
[2020-02-29] MEDS: AMIODARONE 200 MG TABLET PO SCH (08:38)
[2020-02-29] MEDS: METOPROLOL TARTRATE 25 MG TAB PO SCH (08:40)
[2020-02-29 08:41] VITALS: BP 138/65
[2020-02-29] MEDS: FINASTERIDE 5 MG TABLET PO SCH (08:41)
[2020-02-29] MEDS: SODIUM CHLORIDE FLUSH 10ML SYR IVF SCH (09:00)
[2020-02-29] MEDS ORDERED: FINA5TAB4 PO (09:19)
[2020-02-29] MEDS ORDERED: MIRT30TA97 PO (09:19)
[2020-02-29] MEDS ORDERED: ERGO500017 PO (09:19)
[2020-02-29] MEDS ORDERED: CEFD300C37 PO (09:19)
[2020-02-29 14:12] VITALS: BP 122/65
[2020-02-29] MEDS ORDERED: CYCL-259 PO (16:51)
== END 2020-02-29 18:02 | disposition home or self-care (01) | DRG 813 ==
LOC: ED 18:33 → EDIP 18:52 → 3N 20:47
PROVIDERS: ADMIT Internal Medicine; ATTEND Internal Medicine
PROC: 30233N1 Transfusion of Nonautologous Red Blood Cells into Peripheral Vein, Percutaneous Approach (ICD-10-PCS; principal; 2020-02-23)
PROC: 0T9B30Z Drainage of Bladder with Drainage Device, Percutaneous Approach (ICD-10-PCS; 2020-02-23)
DX: D68.32 Hemorrhagic disorder due to extrinsic circulating anticoagulants (principal); N17.0 Acute kidney failure with tubular necrosis; D62 Acute posthemorrhagic anemia; I50.22 Chronic systolic (congestive) heart failure; N13.6 Pyonephrosis; R31.0 Gross hematuria; I25.10 Atherosclerotic heart disease of native coronary artery without angina pectoris; E03.9 Hypothyroidism, unspecified; N32.89 Other specified disorders of bladder; K80.20 Calculus of gallbladder without cholecystitis without obstruction; N36.8 Other specified disorders of urethra; E78.5 Hyperlipidemia, unspecified; F03.90 Unspecified dementia, unspecified severity, without behavioral disturbance, psychotic disturbance, mood disturbance, and anxiety; Z60.2 Problems related to living alone; K59.00 Constipation, unspecified; N40.1 Benign prostatic hyperplasia with lower urinary tract symptoms; Z20.828 Contact with and (suspected) exposure to other viral communicable diseases; R33.8 Other retention of urine; Z79.02 Long term (current) use of antithrombotics/antiplatelets; Z79.82 Long term (current) use of aspirin; I25.2 Old myocardial infarction; Z82.49 Family history of ischemic heart disease and other diseases of the circulatory system; Z95.5 Presence of coronary angioplasty implant and graft; Z87.891 Personal history of nicotine dependence; Z98.52 Vasectomy status
CPT/HCPCS: 36415; 74178; 80048; 80053; 81001; 82040; 82306; 82378; 83735; 84100; 85025; 85610; 85730; 86850; 86900; 86923; 87086; 87635; 99291; G0378; J0696; Q9967; J2270; J7030; P9016